=== PATIENT | female | born 1955 | race Caucasian/White ===

== ENCOUNTER 2016-09-30 08:02 | Emergency (ER) | payer BC ==
[2013-08-02 22:09] VITALS: BMI 33.5
[~2016-09-30 08:02] MED LIST: BACTRIM 400-801 TAB PO; BIOTIN5 MG PO; CALCIUM 600+D T1 TA1 PO; CELEXA20 MG PO; DYAZIDE 37.5/251 CAP PO; ECOTRIN81 MG PO; GABAPENTIN100 MG PO; KLOR-CON M2020 MEQ PO; MUCUS RELIEF400 MG PO; MULTI-DAY VITAM1 TAB PO; SUPER B COMPLE150 MG PO; TAMOXIFEN CITRA20 MG PO; VITAMIN D3400 UNI1 PO
== END 2016-09-30 09:55 | disposition home or self-care (01) ==
LOC: D.ER 08:02
DX: S52.501A Unspecified fracture of the lower end of right radius, initial encounter for closed fracture (principal); X58.XXXA Exposure to other specified factors, initial encounter; Y93.89 Activity, other specified; Y92.89 Other specified places as the place of occurrence of the external cause; C50.919 Malignant neoplasm of unspecified site of unspecified female breast; I10 Essential (primary) hypertension; F32.9 Major depressive disorder, single episode, unspecified

== ENCOUNTER 2017-02-18 09:44 | Outpatient (CLI) | payer BC ==
--- NOTE | ~2017-02-18 | HEMODYNAMI ---
PATIENT:JOSÉ ANTONIO YANG MEDICAL RECORD: [id number] : 55 LOCATION:[facility] ADMISSION DATE: 02/18/17 Generatedon:02/18/201714:47 Patient name: JOSÉ ANTONIO YANG Patient #: [id number] SSN: : 1955 Date of study: 02/18/2017 Page: Of Hemodynamic Procedure Report Patient Data Patient Demographics Procedure consent was obtained First Name: JOSÉ ANTONIO Gender: Female Last Name: TREY : 1955 Middle Initial: STAR Age: 61 year(s) Patient #: [id number] Race: Unknown Additional ID: [id number] Contact details [address]: [address] [place] [address] [address]ET State: [place] City: [place] Zip code: [address] Admission Admission Data Admission Date: 02/18/2017 Admission Time: 9:44 Procedure Procedure Types Cath Procedure Diagnostic Procedure LHC LHC w/Coronaries Miscellaneous Procedures Moderate Sedation up to 15 minutes Procedure Description Procedure Date Procedure Date: 02/18/2017 Procedure Start Time: 14:34 Procedure End Time: 14:47 Procedure Staff Name Function Rubén Willis MD Performing Physician Dodie Pham RT Scrub Velasquez Green RT Monitor Terry Doan RN Nurse Procedure Data Cath Procedure Fluoroscopy Diagnostic fluoroscopy Total fluoroscopy Time: 1.5 time: 1.5 min min Diagnostic fluoroscopy Total fluoroscopy dose: 603 dose: 603 mGy mGy Contrast Material Contrast Material Type Amount (ml) Isovue 300 61 Entry Location Entry Primary Successful Side Size Upsize Upsize Entry Closure Deutsch ccessful Closure Location (Fr) 1 (Fr) 2 (Fr) Remarks Device Remarks Radial Right 6 Fr Mechanical artery Short Compression Estimated blood loss: 10 ml Diagnostic catheters Device Type Used For End Catheter Placement Diagnostic Terumo 5Fr Procedure Lyndora 110cm catheter Procedure Complications No complications Procedure Medications Medication Administration Route Dosage Oxygen NC 2 l/min Lidocaine 2% added to field 20 Heparin Flush Bag added to field 2 bags (1000units/500ml NS) 0.9% NaCl I.V. 100 ml/hr Versed I.V. 1 mg Fentanyl I.V. 50 mcg Versed I.V. 0.5 mg Fentanyl I.V. 100 mcg Radial Cocktail I.A. 1 syringe (Verapomil 2mg/Nitro 400mcg/Heparin 1500units) Hemodynamics Rest Heart Rate: 51 (bpm) Pressure Samples Time Site Value (mmHg) Purpose Heart Use Rate(bpm) 14:37 LV 140/4,29 Snapshot 70 14:37 AO 122/81(102) Pullback 71 14:37 LV 119/15,18 Pullback 71 Gradients Valve Time Site 1 Site 2 Mean SEP/DFP Peak To Heart Use (mmHg) (sec/min) Peak Rate (mmHg) (bpm) Aortic 14:37 LV AO 0 10 0 71 119/15,18 122/81(102) Calculations Valve P-P Mean Valve Index Valve Source Name Gradient Area Flow (cm2) Aortic 0 0 0 0 Snapshots Pre Cath Intra NCS Post Cath Vital Signs Time Heart Resp SPO2 etCO2 NIBP (mmHg) Rhythm Pain Sedation Rate (ipm) (%) (mmHg) Status Level (bpm) 14:24:21 50 18 99 0 180/87(140) NSR 0 (11) 10(A) , No pain 14:29:29 52 19 100 0 192/88(139) NSR 0 (11) 10(A) , No pain 14:34:32 59 16 97 0 156/85(133) NSR 0 (11) 10(A) , No pain 14:39:23 65 15 95 0 126/81(103) NSR 0 (11) 9(A) , No pain 14:44:36 67 15 96 0 156/71(111) NSR 0 (11) 10(A) , No pain Medications Time Medication Route Dose Verified Delivered Reason Notes Effectiveness by by 14:29:44 Oxygen NC 2 l/min Rubén Stewart used for [facility] Doan promotions officer 14:29:54 Lidocaine 2% added 20ml Rubén [place] for local to vial [facility] anesthetic field MD PRASAD 14:30:43 Heparin Flush added 2 bags Rubén [place] used for Bag to [facility] procedure (1000units/500ml field MD PRASAD NS) 14:30:51 0.9% NaCl I.V. 100 Rubén Stewart Per ml/hr [facility]. Christiano schmitt MD 14:33:25 Versed I.V. 1 mg Rubén Stewart for sedation [facility]. Christiano Doan RN, MD 14:33:32 Fentanyl I.V. 50 mcg Rubén Stewart for sedation [facility]. Christiano Doan RN, MD 14:36:46 Radial Cocktail I.A. 1 Rubén Montana for (Verapomil syringe [facility]. Christiano Willis vasodilation 2mg/Nitro MD PRASAD 400mcg/Heparin 1500units) 14:37:22 Versed I.V. 0.5 mg Rubén Stewart for sedation St. Christiano Doan RN, MD 14:37:27 Fentanyl I.V. 100 mcg Rubén Stewart for sedation [facility]. Christiano Doan RN, MD Procedure Log Time Note 14:03:41 Velasquez Green RT(R) sent for patient. Start room use. 14:03:43 Time tracking: Regular hours 14:03:47 Plan of Care:Hemodynamics will remain stable., Cardiac rhythm will remain stable., Comfort level will be maintained., Respiratory function will remain adequate., Patient/ family verbilizes understanding of procedure., Procedure tolerated without complication., Recovers from procedure without complications.. 14:15:48 Patient received from Pre/Post Procedure Room to CCL 1 Alert and oriented. Tansferred to table in Supine position. 14:15:50 Warm blankets applied, and rigoberto hugger turned on for patient comfort. 14:15:50 Correct patient and procedure confirmed by team. 14:15:52 Signed procedure consent form obtained from patient. 14:15:54 ECG and BP/O2 sat monitors applied to patient. 14:21:44 H&P Date Dictated: 01/29/2017 Within 30 days and on chart., H&P Addendum completed by physician on day of procedure. (MUST COMPLETE FOR ALL OUTPATIENTS). 14:21:57 Vital chart was started 14:22:19 Baseline sample Acquired. 14:22:23 Rhythm: sinus rhythm 14:22:25 Full Disclosure recording started 14:22:27 Pre-procedure instructions explained to patient. 14:22:27 Pre-op teaching completed and patient verbalized understanding. 14:22:36 Family in waiting room. 14:22:39 Patient NPO since Midnight. 14:23:09 Is the patient allergic to Iodine/contrast media? No. 14:23:21 Is patient on blood thinner?Yes 14:23:30 Patient diabetic? No. 14:23:55 Patient not . Patient is over age 55. 14:24:00 Previous problem with sedation/anesthesia? No ? 14:24:04 Snore? Yes 14:24:07 Sleep apnea? No 14:24:09 Deviated septum? No 14:24:10 Opens mouth fully? Yes 14:24:13 Sticks out tongue? Yes 14:24:16 Airway obstruction? No ? 14:24:29 Dentures? Yes IN TIGHT 14:24:50 Pre procedure: right radial pulse 2+ Normal; easily identifiable; not easily obliterated 14:24:58 Modified Josef's test Ulnar < 7 seconds 14:25:04 Patient pain scale 0/10 ?. 14:25:10 IV patent on arrival in left forearm with 0.9% NaCl at O. 14:25:17 Lab results completed and on chart. 14:25:24 Right Radial & Right Groin area was prepped with chlora-prep and draped in sterile fashion 14:25:25 Alarms reviewed by R. N. 14:25:26 Sharps counted by scrub and verified by R.N. 14:26:55 --------ALL STOP TIME OUT------ 14:26:59 Final Timeout: patient, procedure, and site verified with staff and physician. All members of the team are in agreement. 14:27:02 Right Radial & Right Groin site verified by team. 14:27:12 Physical assessment completed. ASA score P 2 - A patient with mild systemic disease as per Rubén Willis MD. 14:27:16 Sedation plan: IV Moderate Sedation Versed, Fentanyl 14:27:34 Use device set Radial Dx 14:27:36 Acist Syringe opened to sterile field. 14:27:38 MBrace Wrist Support opened to sterile field. 14:27:38 Tegaderm 4 x 4 opened to sterile field. 14:27:41 Acist Manifold opened to sterile field. 14:27:42 Acist Hand Control opened to sterile field. 14:27:46 Medline Cath Pack opened to sterile field. 14:27:47 Bag Decanter opened to sterile field. 14:27:47 Terumo 6Fr Slender Glidesheath opened to sterile field. 14:27:48 St Tang 260cm J .035 wire opened to sterile field. 14:29:44 Oxygen 2 l/min NC was administered by Terry Doan RN; used for procedure; 14:29:54 Lidocaine 2% 20ml vial added to field was administered by Rubén Willis MD; for local anesthetic; 14:30:43 Heparin Flush Bag (1000units/500ml NS) 2 bags added to field was administered by Rubén Willis MD; used for procedure; 14:30:51 0.9% NaCl 100 ml/hr I.V. was administered by Terry Doan RN; Per physician; 14:33:25 Versed 1 mg I.V. was administered by Terry Doan RN; for sedation; 14:33:32 Fentanyl 50 mcg I.V. was administered by Terry Doan RN; for sedation; 14:34:16 Zero performed for pressure channel P1 14:34:23 Procedure started. 14:34:30 Local anesthetic to right radial artery with Lidocaine 2% by Rubén Willis MD.INITIAL ACCESS ONLY 14:35:42 A 6 Fr Short sheath was inserted into the Right Radial artery 14:36:10 A Diagnostic Terumo 5Fr Lyndora 110cm catheter was advanced over the wire and used for Procedure. 14:36:46 Radial Cocktail (Verapomil 2mg/Nitro 400mcg/Heparin 1500units) 1 syringe I.A. was administered by Rubén Willis MD; for vasodilation; 14:37:22 Versed 0.5 mg I.V. was administered by Terry Doan RN; for sedation; 14:37:27 Fentanyl 100 mcg I.V. was administered by Terry Doan RN; for sedation; 14:37:52 LV angiography performed. 14:37:53 LV gram done using QUINONES 14:37:59 EF : 55 % 14:38:03 LV hemodynamics recorded. 14:38:53 LCA angiography performed. 14:39:56 RCA angiography performed. 14:40:04 Catheter removed. 14:40:37 Sheath removed intact; hemostasis achieved with Mechanical Compression to the Right Radial artery. 14:40:41 Procedure ended.(Physican Out) 14:40:56 Fluoroscopy time 01.50 minutes. 14:41:00 Fluoroscopy dose: 603 mGy 14:41:00 Flurop Dose total: 603 14:41:05 Contrast amount:Isovue 300 61ml. 14:41:07 Sharps counted by scrub and verified by R.N. 14:42:21 TR band inflated with 10cc of air. 14:42:58 Post Procedure Pulses reassessed and unchanged 14:43:24 Insertion/operative site no bleeding no hematoma. 14:43:31 Post-procedure physical assessment completed. ASA score P 2 - A patient with mild systemic disease as per Rubén Willis MD. 14:43:44 Post procedure rhythm: unchanged. 14:43:47 Estimated blood loss: 10 ml 14:43:49 Post procedure instruction explained to patient.Patient verbalizes understanding. 14:43:50 Patient needs reinforcement of post procedure teaching. 14:45:27 Terumo TR Band Standard opened to sterile field. 14:45:46 Procedure and supply charges have been captured, reviewed, submitted and are correct. 14:45:58 Procedure Complication : No complications 14:47:24 Vital chart was stopped 14:47:25 See physician's report for complete and final results. 14:47:27 Report given to Pre/Post Procedure Room. 14:47:30 Patient transfered to Pre/Post Procedure Room with Stretcher. 14:47:33 Procedure ended. 14:47:33 Full Disclosure recording stopped 14:47:38 End room use (Document Last) Device Usage Item Name Manufacture Quantity Catalog Hospital Part Current Minimal Lot# / Number Charge Number Stock Stock Serial# Code Acist Acist 1 [id number] [id number] 729298 [id number] 20 Syringe [employer] Inc MBrace Advanced 1 140-0250-00 050868 91848 911789 5 Wrist Vascular Support Dynamics Tegaderm 4 3M 1 1626W 971472 797555 332845 5 x 4 Acist Acist 1 80982 651090 210525 663276 5 Manifold Medical Systems Inc Acist Hand Acist 1 85886 638614 574197 889162 5 Control Medical Systems Inc Medline Cardinal 1 [id number] 806565 51431 825223 5 Cath Pack Health Bag Microtek 1 2002S 618764 08333 544917 5 Decanter Medical Inc. Terumo 6Fr Terumo 1 [id number] 748086 390078 560553 [address] Tang St Tang 1 639182 079568 346508 353662 30 260cm J .035 wire Diagnostic Terumo 1 95-2297 051157 536155 373142 5 Terumo 5Fr Lyndora 110cm catheter Terumo TR Terumo 1 [id number] 011014 449193 541324 40 Band Standard Signature Audit Bonnie Stage Time Signature Unsigned Intra-Procedure 02/18/2017 Dodie Pham 2:47:56 PM RT(R) Signatures Monitor : Velasquez Green RT Signature : Date : Time : [id number] [place] [address]
[2017-02-18 10:19] VITALS: BP 160/73; BMI 37.5
[2017-02-18] MEDS ORDERED: VIBRAMYCIN 100100 MG PO (10:21)
[2017-02-18 11:11] LABS: BASOPHILS 0.4 % (0-2); EOSINOPHILS 2.4 % (0-7); HEMATOCRIT 39.2 % (36.0-48.0); HEMOGLOBIN 14.1 g/dL (12-16); IMMATURE GRANULOCYTES 0.4 % (0-5); LYMPHOCYTES 34.9 % (15-50); MCH 32.8 pg (26.0-34.0); MCV 91.2 fL (80.0-100.0); MEAN PLATELET VOLUME 9.7 fL (7.4-10.4); MONOCYTES 9.9 % (2-11); RDW 12.2 % (11.5-14.5)
[2017-02-18 11:12] LABS: ANION GAP 10.6 mmol/L (8-16); CALCIUM 9.3 mg/dL (8.5-10.1); CREATININE - SERUM 0.9 mg/dL (0.6-1.3); PLATELET COUNT 110 10x3/uL (130-400); POTASSIUM - SERUM 3.6 mmol/L (3.5-5.1)
--- NOTE | 2017-02-18 15:10 | NUR ---
ROOM AIR, NO RESP DISTRESS NOTED. RIGHT WRIST TR BAND CDI, NO BLEEDING OR HEMATOMA NOTED. NO C/O NAUSEA. SANDWICH TRAY AND DRINK GIVEN. FAMILY AT BEDSIDE, CALL LIGHT WITHIN REACH.
--- NOTE | 2017-02-18 15:40 | NUR ---
RESTING QUIETLY WITH EYES CLOSED. ROOM AIR, NO RESP DISTRESS NOTED. RIGHT WRIST TR BAND CDI, NO BLEEDING OR HEMATOMA NOTED. NO C/O PAIN OR NAUSEA. VSS. CALL LIGHT WITHIN REACH.
--- NOTE | 2017-02-18 15:55 | NUR ---
3CC OF AIR REMOVED FROM TR BAND, NO BLEEDING NOTED.
--- NOTE | 2017-02-18 16:15 | NUR ---
3CC OF AIR REMOVED FROM TR BAND, NO BLEEDING NOTED.
--- NOTE | 2017-02-18 16:28 | NUR ---
3CC OF AIR REMOVED FROM TR BAND, NO BLEEDING NOTED.
--- NOTE | 2017-02-18 16:43 | NUR ---
LEFT FA PIV D/C'D WITH CATHETER INTACT, BAND AID TO SITE. UP TO BEDSIDE TO GET DRESSED.
--- NOTE | 2017-02-18 16:50 | NUR ---
REMAINING AIR REMOVED FROM TR BAND, DRESSING PLACED TO SITE. DISCHARGE INSTRUCTIONS GIVEN, VERBALIZED UNDERSTANDING.
--- NOTE | 2017-02-18 17:00 | NUR ---
TAKEN OUT VIA WHEELCHAIR BY CATH ROTARY LITHOGRAPHIC PRESS OPERATOR. LEFT FACILITY WITH FAMILY MEMBER AND ALL PERSONAL BELONGINGS.
--- NOTE | 2017-02-23 12:01 | OP ---
PATIENT NAME: JOSÉ ANTONIO YANG MEDICAL RECORD: [id number] :55 LOCATION:D[facility] ADMISSION DATE: SURGEON: ROOSEVELT SIERRA MD DATE OF OPERATION: 02/18/2017 PROCEDURES: Left heart catheterization, selective coronary angiography, right radial approach. CATHETERS: [place] catheter and radial sheath. The procedure was well tolerated. The patient was returned to [place]. Sheath was removed. TR band was placed. FINDINGS: Left ventriculography in 30-degree QUINONES view; normal wall motion and normal systolic function. CORONARY ANATOMY: LEFT MAIN: Left main is free of disease. LAD: Free of disease in the diagonal system. CIRCUMFLEX: Free of disease in the marginal system. RIGHT CORONARY ARTERY: Dominant artery, gives rise to PDA, free of disease. IMPRESSION: Normal systolic function. Normal coronary anatomy. TRANSINT:[id number] Voice Confirmation ID: [id number] DOCUMENT ID: [id number] ROOSEVELT SIERRA MD at 1201 CC: [id number] DICTATION DATE: 02/18/17 1445 JAVA J2EE ARCHITECT: 02/18/17 1804 DEP CLI 02/18/17 [facility] [address] [id number]
== END 2017-02-18 17:00 | disposition home or self-care (01) ==
LOC: D.CATH 09:44
PROVIDERS: Internal Medicine Interventional Cardiology
DX: I20.9 Angina pectoris, unspecified (principal); I49.1 Atrial premature depolarization; R00.2 Palpitations; R06.02 Shortness of breath; Z01.812 Encounter for preprocedural laboratory examination

== ENCOUNTER → 2017-04-21 12:23 | Outpatient (CLI) | payer MEDICAID ==
[~2017-04-21 12:23] MED LIST changes: +VIBRAMYCIN 100100 MG PO
== END | disposition home or self-care (01) ==
LOC: D.CT 12:23
DX: R59.0 Localized enlarged lymph nodes (principal)

== ENCOUNTER → 2017-06-25 10:05 | Outpatient (CLI) | payer MEDICAID | END | disposition home or self-care (01) | LOC: D.RT 10:05 | DX: J45.909 Unspecified asthma, uncomplicated (principal) ==

== ENCOUNTER → 2017-08-24 09:09 | Outpatient (CLI) | payer MEDICAID | END | disposition home or self-care (01) | LOC: D.RT 09:09 | DX: R06.00 Dyspnea, unspecified (principal) ==

== ENCOUNTER → 2018-08-02 09:57 | Outpatient (CLI) | payer MEDICAID ==
--- NOTE | 2018-08-09 14:26 | EC ---
PATIENT:JOSÉ ANTONIO YANG DATE OF SERVICE: 08/02/18 SEX: F MEDICAL RECORD: [id number] DATE OF : 55 LOCATION:D[facility] AGE OF PATIENT: 63 ADMISSION DATE: 08/02/18 REFERRING PHYSICIAN: INTERPRETING PHYSICIAN: ROOSEVELT SIERRA MD ECHOCARDIOGRAM REPORT ECHO CHARGES 4 ECHO COMPLETE Date: 08/02/18 CLINICAL DIAGNOSIS: SVT/PALPITATIONS H/O HTN ECHOCARDIOGRAPHIC MEASUREMENTS (adult normal given) AC root (d.<3.7cm) 3.1 cm LV Septum d (<1.2 cm> 1.0 cm Valve Excursion 1.6 cm LV Septum (systole) 1.6 cm Left Atria (s.<4.0cm> 4.5 cm LVPW d(<1.2cm) 1.2 cm RV (d.<2.3cm) 2.8 cm LVPW (sytole) 1.3 cm LV diastole(<5.6CM) 2.6 cm MV E-F(>70mm/sec) cm LV systole 1.5 cm LVOT Diameter 1.9 cm MV exc.(>10mm) cm Est.ejection fraction (50-75%) % DOPPLER: LVIT cm/sec A 71.0 cm/sec E 77.0 cm/sec LA cm/sec RVSP 28.0 mmHg LVOT 110 cm/sec AOP1/2T m/s Asc. Ao 145 cm/sec RVOT 68.0 cm/sec RA cm/sec PA 101 cm/sec AV Gradient Peak 8.5 mmHg AV Mean 4.6 mmHg AV Area 2.4 cm MV Gradient Peak 4.0 mmHg MV Mean 1.3 mmHg MV Area cm COMMENTS: OP - HC Supervisor Electronic Coils: 1 [place] Seeing Eye Dog Teacher: 3 Dr. Willis TAPE# PACS Pericardial Effusion N DATE OF SERVICE: 08/02/2018 Adequate 2-D, color-flow and spectral Doppler, and M-mode. No LVH. LV internal dimensions are normal. Wall motion is normal. EF is 55%. Aortic valve is tricuspid. No evidence of stenosis by Doppler interrogation. Left atrium is dilated at 4.5 cm. Mitral valve shows no prolapse. Mild MR. Right-sided chambers are grossly normal. Mild TR. TRANSINT:[id number] Voice Confirmation ID: [id number] DOCUMENT ID: [id number] ECHOCARDIOGRAM REPORT [id number] JOSÉ ANTONIO YANG,ROOSEVELT Huggins MD at 1426 CC: [id number] DICTATION DATE: 08/03/18 1301 CUSTODIAN: 08/03/18 1427 DEP CLI 08/02/18 [place] [id number] [place] [id number]
== END | disposition home or self-care (01) ==
LOC: D.HCCARDIO 09:57
PROVIDERS: ATTEND Internal Medicine Interventional Cardiology
DX: I08.1 Rheumatic disorders of both mitral and tricuspid valves (principal)

== ENCOUNTER → 2018-09-27 09:14 | Outpatient (CLI) | payer MEDICAID | END | disposition home or self-care (01) | LOC: D.RAD 09:14 | PROVIDERS: ATTEND Internal Medicine Pulmonary Disease | DX: R06.00 Dyspnea, unspecified (principal) ==

== ENCOUNTER → 2019-09-14 10:39 | Outpatient (CLI) | payer MEDICAID ==
--- NOTE | 2019-09-15 08:08 | EC ---
PATIENT:JOSÉ ANTONIO YANG DATE OF SERVICE: 09/14/19 SEX: F MEDICAL RECORD: [id number] DATE OF : 55 LOCATION:[facility] AGE OF PATIENT: 64 ADMISSION DATE: 09/14/19 REFERRING PHYSICIAN: INTERPRETING PHYSICIAN: ROOSEVELT SIERRA MD ECHOCARDIOGRAM REPORT ECHO CHARGES 4 ECHO COMPLETE Date: 09/14/19 CLINICAL DIAGNOSIS: HTN/MITRAL/TRICUSPID REGURG ECHOCARDIOGRAPHIC MEASUREMENTS (adult normal given) AC root (d.<3.7cm) 3.2 cm LV Septum d (<1.2 cm> 1.4 cm Valve Excursion 1.4 cm LV Septum (systole) 2.0 cm Left Atria (s.<4.0cm> 3.4 cm LVPW d(<1.2cm) 1.4 cm RV (d.<2.3cm) 4.3 cm LVPW (sytole) 1.8 cm LV diastole(<5.6CM) 5.1 cm MV E-F(>70mm/sec) cm LV systole 2.9 cm LVOT Diameter 1.6 cm MV exc.(>10mm) 1.6 cm Est.ejection fraction (50-75%) % DOPPLER: LVIT cm/sec A 92.0 cm/sec E 67.0 cm/sec LA cm/sec RVSP 24 mmHg LVOT 88 cm/sec AOP1/2T m/s Asc. Ao 92 cm/sec RVOT 57 cm/sec RA cm/sec PA 101 cm/sec AV Gradient Peak 7.90 mmHg AV Mean 3.92 mmHg AV Area 1.5 cm MV Gradient Peak 3.10 mmHg MV Mean 1.13 mmHg MV Area cm COMMENTS: Scrap Metal Processing Worker: 2 RAOUL VALENZUELA Roll Coverer: 3 Dr. Willis TAPE# PACS Pericardial Effusion N DATE OF SERVICE: Adequate 2D, color flow imaging, spectral Doppler, and M-Mode. Mild LVH. LV internal dimensions are normal. Wall motion is normal. EF is greater than or equal to 55%. Aortic valves is tricuspid. No evidence of stenosis by Doppler interrogation. There is trivial AI with color flow imaging. Left atrium is normal. Mitral valve shows no prolapse. Trace MR. Right-sided chambers are grossly normal. Mild TR. ECHOCARDIOGRAM REPORT [id number] JOSÉ ANTONIO YANG TRANSINT:[id number] Voice Confirmation ID: [id number] DOCUMENT ID: [id number] ROOSEVELT SIERRA MD at 0808 CC: [id number] DICTATION DATE: 09/14/19 [address]ER[address] SPECIALIST: 09/14/19 1759 DEP CLI 09/14/19 [address] [id number] [place] [id number]
== END | disposition home or self-care (01) ==
LOC: D.HCCECHO 10:39
PROVIDERS: ATTEND Internal Medicine Interventional Cardiology
DX: I10 Essential (primary) hypertension (principal)

== ENCOUNTER 2019-11-08 10:03 | Emergency (ER) | payer MEDICAID ==
[~2019-11-08] VITALS: Ht 160 cm; Wt 84.1 kg
[~2019-11-08 10:03] MED LIST changes: +ECOTRIN325 MG PO; -ECOTRIN81 MG PO
[2019-11-08 10:12] VITALS: BP 143/56; Ht 160 cm; Wt 84.1 kg
[2019-11-08] MEDS ORDERED: SINGULAIR10 MG PO (10:16)
[2019-11-08] MEDS ORDERED: COZAAR50 MG PO (10:16)
[2019-11-08] MEDS ORDERED: LASIX40 MG PO (10:17)
[2019-11-08] MEDS ORDERED: L-LYSINE500 M1 PO (10:17)
[2019-11-08] MEDS ORDERED: COLACE100 MG PO (10:17)
[2019-11-08] MEDS ORDERED: ACIDOPHILUS-PE1 EACH (10:18)
[2019-11-08] MEDS ORDERED: TUMERIC (10:18)
== END 2019-11-08 11:14 | disposition home or self-care (01) ==
LOC: D.ER 10:03
DX: S69.91XA Unspecified injury of right wrist, hand and finger(s), initial encounter (principal); S62.309A Unspecified fracture of unspecified metacarpal bone, initial encounter for closed fracture; X50.1XXA Overexertion from prolonged static or awkward postures, initial encounter; Y93.9 Activity, unspecified; Y92.9 Unspecified place or not applicable; I10 Essential (primary) hypertension

== ENCOUNTER 2019-11-16 07:15 | Day surgery (SDC) | payer MEDICAID ==
[~2019-11-16] VITALS: Ht 160 cm; Wt 83.9 kg
[~2019-11-16 07:15] MED LIST changes: +ACIDOPHILUS-PE1 EACH; +COLACE100 MG PO; +COZAAR50 MG PO; +GLUCOPHAGE500 MG PO; +L-LYSINE500 M1 PO; +LASIX40 MG PO; +SINGULAIR10 MG PO; +TUMERIC; +VITAMIN E200 UNI1 PO
[2019-11-16 07:41] LABS: HEMATOCRIT 35.7 % (36.0-48.0); HEMOGLOBIN 12.4 g/dL (12-16); MCH 31.7 pg (26.0-34.0); MCHC 34.7 g/dL (31.0-37.0); MCV 91.3 fL (80.0-100.0); MEAN PLATELET VOLUME 9.4 fL (7.4-10.4); RBC 3.91 10x6/uL (4.00-5.40); RDW 12.2 % (11.5-14.5); WBC 4.8 10x3/uL (4.8-10.8)
[2019-11-16 07:52] LABS: CALCIUM 8.6 mg/dL (8.5-10.1); CARBON DIOXIDE 32.5 mmol/L (21.0-32.0); POTASSIUM - SERUM 3.5 mmol/L (3.5-5.1)
[2019-11-16 08:12] VITALS: BP 130/73; Ht 160 cm; Wt 83.9 kg
[2019-11-16] MEDS ORDERED: VITAMIN D1000 UNIT PO (08:43)
[2019-11-16] MEDS ORDERED: FISH OIL 1,0001 CA1 PO (08:45)
[2019-11-16] MEDS ORDERED: CALCIUM 600 +1 EAC3 PO (08:49)
[2019-11-16] MEDS ORDERED: FLUTICASONE PRO16 GM NASAL (08:51)
[2019-11-16] MEDS ORDERED: ARTIFICIAL TEARS (08:52)
[2019-11-16] MEDS ORDERED: HYDROCODON-ACE1 EA10 PO (10:34)
--- NOTE | 2019-11-16 12:11 | NUR ---
PT REQUESTED A SLING AND ONE PROVIDED WITH INSTRUCTIONS. IV REMOVED AND PRESSURE HELD AND DRESSING APPLIED 1210
--- NOTE | 2019-11-21 09:15 | OP ---
PATIENT NAME: JOSÉ ANTONIO YANG MEDICAL RECORD: [id number] :55 [facility]ATION:[facility] ADMISSION DATE: SURGEON: IBETH MARSH MD DATE OF OPERATION: 11/16/2019 PREOPERATIVE DIAGNOSIS: Fracture of the base of the right long finger proximal phalanx, ulnar aspect. POSTOPERATIVE DIAGNOSIS: Fracture of the base of the right long finger proximal phalanx, ulnar aspect. PROCEDURE: 1. Excision of fragmented fracture of the base of the right long finger proximal phalanx. 2. Repair of the ulnar collateral ligament of the right long finger MCP joint. SURGEON: Ibeth Marsh MD ANESTHESIA: General. INTRAOPERATIVE COMPLICATIONS: None. SUMMARY OF PATHOLOGIC FINDINGS: Unfortunately, the patient's piece had multi-fragmented and this was causing locking as a portion of the small fragment of bone was in the joint. Small portion of the ulnar collateral ligament required repair. OPERATIVE SUMMARY IN DETAIL: After obtaining the appropriate preoperative orthopedic surgery consent, as well as anesthetic consultation, evaluation and clearance the patient was brought to the operating room and placed on the operating table in supine position. After general laryngeal mask airway was administered, tourniquet was placed about the proximal aspect of the right upper extremity. Right upper extremity was then prepped and draped in routine sterile fashion. At this point, appropriate timeout was taken and agreed upon by all given the patient's unique identifiers. The arm was elevated and exsanguinated, tourniquet was inflated to 250 mmHg. An incision was made on the ulnar aspect of the MCP joint, was taken very carefully down to the dorsal stack, which was gently incised for later reapproximation. At this point, under direct fluoroscopic visualization. The bone fragment was found, most of the fragmented pieces were found intraarticularly. These were removed and a small portion of the ulnar collateral ligament was maintained to a small piece of the small fragment of bone. The small fragment was removed and then a 4-0 Ethibond was used to reapproximate the ulnar collateral ligament in a transosseous fashion. Having completed this, a 3-0 Vicryl was utilized to repair the small incision made in the metacarpophalangeal joint stack to approach the joint itself. Having completed this, the wound was copiously irrigated and closed with 4-0 Prolene in routine interrupted fashion. The area was locally infiltrated with 0.25% Marcaine plain. Sterile dressings were applied. A palmar volar splint was applied to maintain the finger in a straight position. The tourniquet was deflated. The patient was awakened and taken to recovery room in stable condition. All final needle and sponge counts were correct. TRANSINT:[id number] Voice Confirmation ID: [id number] DOCUMENT ID: [id number] OPERATIVE REPORT [id number] JOSÉ ANTONIO YANG MD, IBETH TEJADA at 0915 CC: [id number] DICTATION DATE: 11/20/19 07 BIGHT MAKER: 11/20/19 1829 [facility] 11/16/19 [address] [place] [address]
== END 2019-11-16 12:36 | disposition home or self-care (01) ==
LOC: D.OPS 07:15 → D.PAN 11:00 → D.OPS 11:00 → D.PAN 11:15 → D.OPS 11:15
PROVIDERS: Anesthesiology; ATTEND Orthopaedic Surgery
DX: S62.612A Displaced fracture of proximal phalanx of right middle finger, initial encounter for closed fracture (principal); M24.00 Loose body in unspecified joint; E11.9 Type 2 diabetes mellitus without complications; I10 Essential (primary) hypertension; Z79.84 Long term (current) use of oral hypoglycemic drugs; X58.XXXA Exposure to other specified factors, initial encounter

== ENCOUNTER → 2020-10-01 12:23 | Outpatient (CLI) | payer MEDICARE, MEDICAID ==
[2020-04-08 10:56] VITALS: BMI 35.5
[~2020-10-01 12:23] MED LIST changes: +ARTIFICIAL TEARS; +CALCIUM 600 +1 EAC3 PO; +FISH OIL 1,0001 CA1 PO; +FLUTICASONE PRO16 GM NASAL; +HYDROCODON-ACE1 EA10 PO; +VITAMIN D1000 UNIT PO
--- NOTE | 2020-10-03 08:19 | EC ---
PATIENT:JOSÉ ANTONIO YANG DATE OF SERVICE: 10/01/20 SEX: F MEDICAL RECORD: [id number] DATE OF : 55 [facility] AGE OF PATIENT: 65 ADMISSION DATE: 10/01/20 REFERRING PHYSICIAN: INTERPRETING PHYSICIAN: ROOSEVELT SIERRA MD ECHOCARDIOGRAM REPORT ECHO CHARGES 4 ECHO COMPLETE Date: 10/01/20 CLINICAL DIAGNOSIS: HX OF HTN/SVT ASSESS EF/MITRAL/TRICUSPID REGURG ECHOCARDIOGRAPHIC MEASUREMENTS (adult normal given) AC root (d.<3.7cm) 3.3 cm LV Septum d (<1.2 cm> 1.4 cm Valve Excursion 1.7 cm LV Septum (systole) 1.6 cm Left Atria (s.<4.0cm> 4.3 cm LVPW d(<1.2cm) 1.3 cm RV (d.<2.3cm) 3.8 cm LVPW (sytole) 1.5 cm LV diastole(<5.6CM) 5.0 cm MV E-F(>70mm/sec) cm LV systole 4.0 cm LVOT Diameter 1.9 cm MV exc.(>10mm) 1.2 cm Est.ejection fraction (50-75%) % DOPPLER: LVIT cm/sec A 89.0 cm/sec E 71.0 cm/sec LA cm/sec RVSP 27 mmHg LVOT 82 cm/sec AOP1/2T m/s Asc. Ao 128 cm/sec RVOT 54 cm/sec RA cm/sec PA 113 cm/sec AV Gradient Peak 6.52 mmHg AV Mean 3.21 mmHg AV Area 2.3 cm MV Gradient Peak 3.96 mmHg MV Mean 1.08 mmHg MV Area cm COMMENTS: Industrial Methods Consultant: 2 RAOUL VALENZUELA Supervisor Mill: 3 Dr. Willis TAPE# PACS Pericardial Effusion N DATE OF SERVICE: Adequate 2D, color flow imaging, spectral Doppler, and M-Mode. FINDINGS: Mild LVH. LV internal dimension is normal. Wall motion is normal. EF is greater than or equal to 55%. Aortic valve sclerosis without evidence of stenosis by Doppler interrogation. Left atrium is dilated at 4.3 cm. Mitral valve shows no prolapse. Trace MR. Right side is grossly normal. Mild TR. TRANSINT:[id number] Voice Confirmation ID: [id number] DOCUMENT ID: [id number] ECHOCARDIOGRAM REPORT [id number] JOSÉ ANTONIO YANG,ROOSEVELT Huggins MD at 0819 CC: [id number] DICTATION DATE: 10/02/20 161 AFLOAT CRYPTOLOGIC MANAGER: 10/02/20 2321 DEP CLI 10/01/20 [id number] [place] [address]
== END | disposition home or self-care (01) ==
LOC: D.HCCECHO 12:23
PROVIDERS: ATTEND Internal Medicine Interventional Cardiology
DX: I10 Essential (primary) hypertension (principal)